=== PATIENT | male | born 1995 | race African-American/Black ===

== ENCOUNTER 2023-12-13 01:51 | Emergency (ER) | payer OTHER ==
[~2023-12-13] VITALS: Ht 177.8 cm; Wt 92.4 kg
[2023-12-13] MEDS: IPRATROPIUM 0.5MG/ALBUTEROL 2.5MG INH SOL UD 3ML (DUONEB) NEB PRN (06:22)
[2023-12-13] MEDS: methylPREDNISolone 125MG 2ML VIAL IM ONE (06:22)
[2023-12-13] MEDS ORDERED: PRED20TA PO (08:18)
[2023-12-13] MEDS ORDERED: AMOX875T2 PO (08:18)
[2023-12-13 08:41] VITALS: BP 130/83; TEMP 98.4; O2SAT 97
== END 2023-12-13 08:45 | disposition home or self-care (01) ==
LOC: M ED 01:51
DX: J45.901 Unspecified asthma with (acute) exacerbation (principal); B34.8 Other viral infections of unspecified site; F10.10 Alcohol abuse, uncomplicated; Z88.7 Allergy status to serum and vaccine; Z88.8 Allergy status to other drugs, medicaments and biological substances; Z79.52 Long term (current) use of systemic steroids; Z79.2 Long term (current) use of antibiotics
CPT/HCPCS: 71046; 87486; 87581; 87633; 87798; 94640; 94760; 96372; 99284; J2919

== ENCOUNTER → 2025-06-24 | Outpatient (CLI) | payer OTHER ==
[~2025-06-24] MED LIST: AMOX875T2 PO; PRED20TA PO
== END ==
LOC: M RAD 13:32
PROVIDERS: ATTEND Internal Medicine Nephrology
DX: N17.9 Acute kidney failure, unspecified (principal); N28.1 Cyst of kidney, acquired